=== PATIENT | female | born 1955 | race Caucasian/White ===

== ENCOUNTER 2018-04-21 13:46 | Emergency (ER) | payer MEDICAID ==
[~2018-04-21] VITALS: Ht 167.6 cm; Wt 112.0 kg
[2018-04-21 14:00] VITALS: BP 133/77
--- NOTE | 2018-04-21 14:45 | NUR ---
PATIENT AMBULATED TO ER BED 3.
--- NOTE | 2018-04-21 15:00 | NUR ---
PT IS A 62 Y/O FEMALE WHO PRESENTS TO THE ED C/O COLD SYMPTOMS. PT STATES THAT IT HAS BEEN GOING ON X2 DAYS, REPORTS 8/10 ACHING HEADACHE PAIN. PT DENIES CP, SOB, N/V/D. PT REPORTS COUGH, LUNG SOUNDS CLEAR BL, REPORTS CONGESTION AND FEVER. TOOK TYLENOL. PT AWAKE AND ALERT, RR EVEN/UNLABORED. PT REPOSITIONED FOR COMFORT, BED IN LOWEST POSITION. ER MD DR. LEMUS NOTIFIED. WILL CONTINUE TO MONITOR. NO PMH NKA
[2018-04-21 16:57] VITALS: BP 130/82
--- NOTE | 2018-04-21 16:57 | NUR ---
Patient discharged with v/s stable. Written and verbal after care instructions given and explained. Patient alert, oriented and verbalized understanding of instructions. Ambulatory with steady gait. All questions addressed prior to discharge. ID band removed. Patient advised to follow up with PMD. Rx of CLARITIN/HYDROCORTISONE/TYLENOL/PROMETHAZINE given. Patient educated on indication of medication including possible reaction and side effects. Opportunity to ask questions provided and answered.
== END 2018-04-21 16:57 | disposition home or self-care (01) ==
LOC: MED 13:46
DX: J06.9 Acute upper respiratory infection, unspecified (principal)
CPT/HCPCS: 99283

== ENCOUNTER 2019-06-02 11:36 | Emergency (ER) | payer SELFPAY ==
[~2019-06-02] VITALS: Ht 167.6 cm; Wt 104.3 kg
[2019-06-02 11:56] VITALS: BP 116/75
--- NOTE | 2019-06-02 11:59 | NUR ---
URINE CUP HANDED TO PT FOR SAMPLE
[2019-06-02 13:09] LABS: BASOPHILS % (AUTO) 0.5 % (0.0-2.0); EOSINOPHILS # (AUTO) 0.2 K/uL (0-0.4); EOSINOPHILS % (AUTO) 2.3 % (0.0-4.0); HEMATOCRIT 44.6 % (36-48); HEMOGLOBIN 15.2 g/dL (12.0-16.0); LYMPHOCYTES # (AUTO) 2.1 K/uL (2.5-16.5); LYMPHOCYTES % (AUTO) 29.8 % (20.5-51.1); MEAN CORPUSCULAR HEMOGLOBIN 31 pg (27-31); MEAN CORPUSCULAR HGB CONC 34 g/dL (33-37); MEAN CORPUSCULAR VOLUME 91.8 fL (80-94); MONOCYTES # (AUTO) 0.3 K/uL (0.8-1.0); MONOCYTES % (AUTO) 3.9 % (1.7-9.3); NEUTROPHILS # (AUTO) 4.4 K/uL (1.8-7.7); NEUTROPHILS % (AUTO) 63.5 % (42.2-75.2); PLATELET COUNT (AUTO) 301 K/uL (140-450); RED BLOOD CELL COUNT(AUTO) 4.86 MIL/uL (4.20-5.40); RED CELL DISTRIBUTION WIDTH 13.3 % (11.6-13.7); WHITE BLOOD COUNT (AUTO) 6.9 K/uL (4.8-10.8)
[2019-06-02 13:20] LABS: PROTHROMBIN TIME 9.8 secs (10.8-13.4)
[2019-06-02 13:25] LABS: ALBUMIN 3.8 g/dL (3.4-5.0); BILIRUBIN,DIRECT 0.2 mg/dL (0.0-0.3); CARBON DIOXIDE 31.4 mmol/L (21-32); CREATININE 0.8 mg/dL (0.6-1.3); POTASSIUM 4.4 mmol/L (3.5-5.1); TOTAL BILIRUBIN 0.8 mg/dL (0.0-1.0)
--- NOTE | 2019-06-02 13:29 | NUR ---
TO ED 08
[2019-06-02] MEDS ORDERED: KETOROLAC 30 MG/ML VIAL IVP ONE (13:45)
[2019-06-02 14:04] LABS: APPEARANCE,URINE CLEAR (CLEAR); BILIRUBIN,URINE NEGATIVE (NEGATIVE); BLOOD, URINE NEGATIVE (NEGATIVE); COLOR,URINE YELLOW (YELLOW); LEUKOCYTE ESTERASE ,URINE NEGATIVE (NEGATIVE); NITRITE, URINE NEGATIVE (NEGATIVE); UGLUCOSE NEGATIVE (NEGATIVE)
--- NOTE | 2019-06-02 14:12 | NUR ---
63 Y/O FEMALE C/O LLQ PAIN X 14 DAYS. PT STATES 10/10 STABBING INTERMITTENT PAIN THAT RADIATES TO LT FLANK. DENIES URINARY SYMPTOMS. DENIES N/V/D/FEVER. ABD SOFT, ROUND, TENDER TO PALPATION. RR EVEN AND UNLABORED. PT SITTING UPRIGHT IN BED POSITIONED FOR COMFORT. X 1 SIDE RAIL RAISED, BED LOCKED AND IN LOW POSITION. VSS MEDHX: DENIES ALLERGIES: NKA
--- NOTE | 2019-06-02 15:00 | NUR ---
STATES DECREASE IN PAIN AFTER BEING MEDICATED BY TORADOL, 2/10 TOLERABLE PAIN
[2019-06-02 15:08] VITALS: BP 116/75
--- NOTE | 2019-06-02 15:08 | NUR ---
Patient discharged with v/s stable. Written and verbal after care instructions given and explained. Patient alert, oriented and verbalized understanding of instructions. Ambulatory with steady gait. All questions addressed prior to discharge. ID band removed. Patient advised to follow up with PMD. Rx of BACTRIM,FLAGYL,NAPROSYN given. Patient educated on indication of medication including possible reaction and side effects. Opportunity to ask questions provided and answered.
== END 2019-06-02 15:08 | disposition home or self-care (01) ==
LOC: MED 11:36
DX: K57.92 Diverticulitis of intestine, part unspecified, without perforation or abscess without bleeding (principal); K59.00 Constipation, unspecified
CPT/HCPCS: 36415; 74176; 80053; 80076; 81003; 81025; 85025; 85610; 96374; 99284; J1885